=== PATIENT | female | born 1955 | race Caucasian/White ===

== ENCOUNTER → 2020-03-15 | Outpatient (CLI) | payer SELFPAY ==
[2020-03-15 18:10] LABS: BASOPHILS # (AUTO) 0.1 10^3/uL (0.0-0.1); BASOPHILS % (AUTO) 1.1 %; EOSINOPHILS # (AUTO) 0.1 10^3/uL (0.0-0.7); EOSINOPHILS % (AUTO) 0.6 %; HGB - HEMOGLOBIN 12.2 g/dL (12.0-16.0); LYMPHOCYTES # (AUTO) 3.3 10^3/uL (1.5-3.5); LYMPHOCYTES % (AUTO) 39.6 %; MEAN CORPUSCULAR HEMOGLOBIN 32.6 pg (27.0-31.0); MEAN CORPUSCULAR HGB CONC 32.3 g/dL (32.0-36.0); MEAN CORPUSCULAR VOLUME 101.1 fL (81.0-99.0); MEAN PLATELET VOLUME 10.2 fL (7.9-10.8); MONOCYTES # (AUTO) 1.2 10^3/uL (0.0-1.0); MONOCYTES % (AUTO) 14.6 %; NEUTROPHILS # (AUTO) 3.6 10^3/uL (1.5-6.6); NEUTROPHILS % (AUTO) 42.8 %; PLT - PLATELET COUNT 316 10^3/uL (130-450); RED BLOOD COUNT 3.74 10^6/uL (4.20-5.40); RED CELL DISTRIBUTION WIDTH 12.8 % (12.0-15.0); WHITE BLOOD COUNT 8.3 x10^3/uL (4.8-10.8)
[2020-03-15 18:51] LABS: ALBUMIN 4.1 g/dL (3.2-5.5); ALBUMIN/GLOBULIN RATIO 1.2 (1.0-2.2); ALKALINE PHOSPHATASE 35 IU/L (42-121); ALT ALANINE AMINOTRANSFERASE 20 IU/L (10-60); AST ASPARTATE AMINOTRANSFERASE 28 IU/L (10-42); BILIRUBIN,TOTAL 0.6 mg/dL (0.2-1.0); BUN - BLOOD UREA NITROGEN 16 mg/dL (6-20); CALCIUM 9.8 mg/dL (8.5-10.3); CARBON DIOXIDE - CO2 26 mmol/L (21-32); CHLORIDE 100 mmol/L (101-111); CHOL/HDL RATIO 3.2 (<4.4); CHOLESTEROL 161 mg/dL; CREATININE 0.5 mg/dL (0.4-1.0); GLUCOSE 82 mg/dL (70-100); HDL CHOLESTEROL 50 mg/dL; LDL CHOLESTEROL,CALCULATED 95 mg/dL; LDL/HDL RATIO 1.9 (<4.4); SODIUM 136 mmol/L (135-145); TOTAL PROTEIN 7.4 g/dL (6.7-8.2); VLDL CHOLESTEROL 16 mg/dL
== END ==
LOC: LAB.WCP 08:00
PROVIDERS: ATTEND Nurse Practitioner Family
DX: F32.9 Major depressive disorder, single episode, unspecified (principal); Z79.899 Other long term (current) drug therapy; R56.1 Post traumatic seizures
CPT/HCPCS: 36415; 80053; 80061; 83721; 84443; 85025

== ENCOUNTER 2020-11-25 14:39 | Outpatient (CLI) | payer MEDICARE, MEDICAID ==
[2020-11-25 15:21] VITALS: BP 91/59
--- NOTE | 2020-11-25 15:21 | SLEEP CARE CONSULTATION ---
Information from patient questionnaire entered by Maki Schmid. I have reviewed and concur with the information entered by Maki Schmid. This document represents the service I personally performed and the decisions made by me, Joslyn King ARNP. History of Present Illness Service Date and Time: 11/25/2020 1439 Reason for Visit: New patient Chief Complaint: reports: Insomnia, Unrefreshed sleep, Snoring, Excessive daytime sleepiness, Observed pauses in breathing, Frequent awakenings at night Date of Onset: many years Usual bedtime: 9 pm Time it takes to fall asleep: 1 hour or more Snores at night: Yes Observed to quit breathing while asleep: Yes Number of times waking at night: 3 Reasons for waking at night: reports: Snoring, Gasping for air, Bathroom. denies: Choking Toss, Turn, or Twitch while sleeping: Yes Recalls having dreams: Yes Usually gets out of bed at: 8 am Feels refreshed in the morning: No Morning headache: Yes (resolves in an hour; 4 days a week) Sleepy or fatigued during the day: Yes Ever fallen asleep while driving: No (she does not drive) Takes day naps: Yes (at least once a day for about an hour) Dreams during day naps: Yes Prior sleep studies: No Additional HPI information: I had the pleasure of seeing BAL HINSON today regarding the possibility of her having a sleep disorder. She is accompanied by her son and granddaughter today. She has a history of epilepsy. Her current complaints are frequent night awakenings, insomnia, observed pauses in breathing, unrefreshed sleep and snoring. She has been heard gasping in her sleep. Her son's girlfriend has been noting these since she sleeps in the same room that the girlfriend works in on the computer. She does see a neurologist for her epilepsy and they are adjusting her medications. She feels like she wakes up a lot at night and it takes her about an hour to fall asleep. She will also take daily 1 hour naps on average. Sometimes she will take a second nap during the day. She is on oxygen concentrator at night. 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 Patient is / and lives in [place]. Have you smoked in the past 12 months: No (vapes) Quit date: 2018 Alcohol use: No Caffeine use: Yes Caffeine amount and frequency: 2 cups coffee daily Family History Family history of sleep disordered breathing: No Allergies and Home Medications Drug allergies reviewed: Yes (NKDA) Allergy and home medication list: Depakote Clonazepam Citalopram Keppra Review of Systems Weight loss over past 5 years: 10 Cardiovascular: denies: high blood pressure Respiratory: reports: shortness of breath, wheeze Gastrointestinal: denies: heartburn Neurological: reports: seizure, head trauma, disorientation Psychiatric: reports: anxiety, claustrophobia. denies: depression, mood disorder Endocrine: reports: sluggishness, unexplained weakness Physical Exam Blood Pressure: 91/59 Cuff size: wrist Heart Rate: 96 O2 Saturation: 99 Height: 5 ft 2 in Weight: 101 lb Body Mass Index: 18.4 BMI Classification: Underweight Neck circumference: 12 (inches) Nostrils: patent to airflow Mouth and throat: narrow oropharynx Soft palate: long Hard palate: normal Uvula visualization: 50% Mallampati Class II Tongue: normal in size Tonsils: small Heart: regular rate and rhythm Lungs: clear bilaterally Impression and Plan 1. Suspected Obstructive Sleep Apnea-Hypopnea Syndrome, as suggested by a history of loud and irregular snoring, observed cessation of breath while asleep, gasping or choking in sleep, morning headache, frequent awakening during the night, unrefreshed sleep, cognitive impairment, and excessive daytime sleepiness. Narrow oropharynx and obesity are common predisposing factors for obstructive sleep apnea-hypopnea syndrome. I recommend proceeding to polysomnography to confirm the diagnosis and to assess severity. If the patient has significant sleep disordered breathing, a manual CPAP titration study will also be performed to find the optimal treatment pressure. I informed the patient of what the sleep studies involve and after some discussion, obtained agreement to proceed. The pathophysiology of obstructive sleep apnea-hypopnea syndrome was discussed with the patient and health risks of cardiovascular and cerebrovascular disease if not treated. Patient agreed to plan. * Schedule polysomnography +- manual CPAP titration study and return in 1-2 weeks after the study to discuss result and initiate therapy. * Avoid alcohol, sedative and muscle relaxant around bedtime. * Maintain a healthy weight. * Review instructions provided by trained office staff on how to prepare for the sleep study. * Return for follow-up after sleep study completed. Counseling Topics: Weight control Visit Type: In Office Time Spent with Patient (minutes): 31 Provider Statement: I spent 100% of the Face to Face Visit with the patient with greater than 50% spent counseling the patient and coordination of care.
== END 2020-11-25 14:40 | disposition home or self-care (01) ==
LOC: SC 14:39
PROVIDERS: ATTEND Nurse Practitioner Family
DX: G47.10 Hypersomnia, unspecified (principal); R06.81 Apnea, not elsewhere classified; G47.8 Other sleep disorders; R51.9 Headache, unspecified; R41.9 Unspecified symptoms and signs involving cognitive functions and awareness; R06.83 Snoring; R63.6 Underweight; Z68.1 Body mass index [BMI] 19.9 or less, adult
CPT/HCPCS: 99203; G0463; 99212

== ENCOUNTER 2020-11-29 12:30 | Outpatient (CLI) | payer MEDICARE, MEDICAID | END 2020-11-29 12:31 | disposition home or self-care (01) | LOC: SC 12:30 | PROVIDERS: ATTEND Nurse Practitioner Family | DX: G47.10 Hypersomnia, unspecified (principal); G47.8 Other sleep disorders; G47.00 Insomnia, unspecified; R51.9 Headache, unspecified; R06.81 Apnea, not elsewhere classified; R06.83 Snoring; R09.02 Hypoxemia | CPT/HCPCS: G0399 ×2; 95806 ==

== ENCOUNTER 2020-12-16 08:41 | Outpatient (CLI) | payer MEDICARE, MEDICAID ==
--- NOTE | 2020-12-16 09:01 | SLEEP CARE CONSULTATION ---
Information from patient questionnaire entered by Maki Schmid. I have reviewed and concur with the information entered by Maki Schmid. This document represents the service I personally performed and the decisions made by , Joslyn King ARNP. History of Present Illness Service Date and Time: 12/16/2020 0841 Initial [place] Sleepiness Scale score: 5 (in 2020) Current [place] Sleepiness Scale score: 9 Additional HPI information: BAL HINSON returns with sonfor follow up and results of the recently performed home sleep study. The patient was informed of the following findings: Patient patient HST was inconclusive due to poor air flow and pulse ox signals. The average AHI was 0.4 and leatha oxygen saturation 84%. It was recommended that patient do an in lab PSG study. Patient does not drink alcohol. Sleep Study - Results Type of Sleep Study: Home sleep study Prior sleep studies: No Polysomnography/Home Sleep Study results: Physician Impression: The quality of the study is poor due to significant loss of airflow and pulse oximetry signals.. The length of the study is adequate (> 240 minutes). Please also see the tabulated and graphic data. 1. No significant sleep disordered breathing, with an AHI of 0.4/hr and leatha SaO2 of 84%. During the study, the patient had 1 apnea (1 obstructive, 0 central, 0 mixed) and 0 hypopneas. The episode lasted 10.0 seconds. The respiratory events occurred more frequently during supine sleep (supine AHI was 0.0 and non-supine, 0.94). 2. Hypoxemia (ICD-10 R09.02), mild, with the lowest oxygen saturation of 84 % and 7.2 minutes with SaO2 under 90%. Baseline oxygen saturation was normal (Average oxygen saturation was 92%). Recommendation: Due to significant data loss, this home sleep apnea test (HSAT) is inconclusive. An in-laboratory polysomnography should be considered. Allergies and Home Medications Home medication list reviewed: Yes (no changes) Review of Systems Review of systems same as previous: Yes (no changes) Physical Exam Heart Rate: 112 O2 Saturation: 89 (uses nocturnal oxygen) Height: 5 ft 2 in Weight: 95 lb 9.6 oz Body Mass Index: 17.4 BMI Classification: Underweight Impression and Plan 1. Suspected Obstructive Sleep Apnea-Hypopnea Syndrome, as suggested by a history of irregular snoring, observed cessation of breath while asleep, gasping or choking in sleep, frequent awakening during the night, unrefreshed sleep, and excessive daytime sleepiness. Patient's a HST was inconclusive due to significant airflow pulse oximeter signal loss. I recommend proceeding to in lab polysomnography to confirm the diagnosis and to assess severity. I obtained agreement to proceed. The pathophysiology of obstructive sleep apnea-hypopnea syndrome was discussed with the patient and health risks of cardiovascular and cerebrovascular disease if not treated. Risks of drowsy driving discussed in detail and patient advised to avoid long distance driving and to gum puller at the first sign of drowsiness. Patient agreed to plan. * Schedule polysomnography +- manual CPAP titration study and return in 1-2 weeks after the study to discuss result and initiate therapy. * Avoid long distance driving or driving when feeling sleepy. * Avoid alcohol, sedative and muscle relaxant around bedtime. * Maintain a healthy weight. * Review instructions provided by trained office staff on how to prepare for the sleep study. * Return for follow-up after sleep study completed. Counseling Topics: Weight control Visit Type: In Office Other Participants: Child (Son) Time Spent with Patient (minutes): 12 Provider Statement: I spent 100% of the Face to Face Visit with the patient with greater than 50% spent counseling the patient and coordination of care.
== END 2020-12-16 08:42 | disposition home or self-care (01) ==
LOC: SC 08:41
PROVIDERS: ATTEND Nurse Practitioner Family
DX: G47.10 Hypersomnia, unspecified (principal); R06.81 Apnea, not elsewhere classified; G47.8 Other sleep disorders; R06.83 Snoring; R63.6 Underweight; Z68.1 Body mass index [BMI] 19.9 or less, adult
CPT/HCPCS: 99212; G0463

== ENCOUNTER 2021-04-27 19:58 | Outpatient (CLI) | payer MEDICARE, MEDICAID | END 2021-04-27 19:59 | disposition home or self-care (01) | LOC: SC 19:58 | PROVIDERS: ATTEND Nurse Practitioner Family | DX: G47.10 Hypersomnia, unspecified (principal); G47.8 Other sleep disorders; R06.81 Apnea, not elsewhere classified; R06.83 Snoring | CPT/HCPCS: 95810 ==

== ENCOUNTER 2021-05-11 13:27 | Emergency (ER) | payer MEDICARE, MEDICAID ==
[2021-05-11] MEDS ORDERED: SODIUM CHLORIDE 0.9% 1,000 ML IV STA (14:20)
[2021-05-11 14:30] LABS: BASOPHILS % (AUTO) 0.6 %; EOSINOPHILS % (AUTO) 0.5 %; HCT - HEMATOCRIT 35.2 % (37.0-47.0); HGB - HEMOGLOBIN 11.6 g/dL (12.0-16.0); LYMPHOCYTES % (AUTO) 23.4 %; MEAN CORPUSCULAR HEMOGLOBIN 32.7 pg (27.0-31.0); MEAN CORPUSCULAR VOLUME 99.2 fL (81.0-99.0); MEAN PLATELET VOLUME 10.3 fL (7.9-10.8); MONOCYTES % (AUTO) 12.7 %; NEUTROPHILS % (AUTO) 62.2 %; PLT - PLATELET COUNT 188 10^3/uL (130-450); RED BLOOD COUNT 3.55 10^6/uL (4.20-5.40); RED CELL DISTRIBUTION WIDTH 13.2 % (12.0-15.0)
[2021-05-11 14:33] LABS: ABNORMAL LYMPHS % (MANUAL) 0 %
[2021-05-11 14:42] LABS: ALBUMIN/GLOBULIN RATIO 1.4 (1.0-2.2); BILIRUBIN,TOTAL 1.4 mg/dL (0.2-1.0); CALCIUM 9.7 mg/dL (8.5-10.3); CREATININE 0.5 mg/dL (0.4-1.0); POTASSIUM 4.2 mmol/L (3.5-5.0); TOTAL PROTEIN 6.9 g/dL (6.7-8.2)
--- NOTE | 2021-05-11 14:50 | CT Report ---
PROCEDURE: HEAD WO INDICATIONS: multiple seizures TECHNIQUE: Noncontrast 4.5 mm thick angled axial sections acquired from the foramen magnum to the vertex. For r adiation dose reduction, the following was used: automated exposure control, adjustment of mA and/or kV according to patient size. COMPARISON: None. FINDINGS: Image quality: Excellent. CSF spaces: Basal cisterns are patent. No extra-axial fluid collections. Ventricles are normal in size and shape. Brain: No midline shift. No intracranial masses or hemorrhage. Galvan-white matter interface is norm al. Skull and face: Calvarium and visualized facial bones are intact, without suspicious lesions. Sinuses: Visualized sinuses and mastoids are clear. IMPRESSION: No acute intracranial abnormality. Patient will likely benefit from follow-up brain MRI. Reviewed by: Shoaib Arreguin MD on 05/11/2021 2:49 PM PST Approved by: Shoaib Arreguin MD on 05/11/2021 2:49 PM [facility] Station ID: [id number]
[2021-05-11] MEDS ORDERED: LORazepam 2 MG/ML VIAL IVP STA (14:52)
[2021-05-11] MEDS ORDERED: LORazepam 1 MG TABLET PO STA (14:52)
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
[2021-05-11 15:36] LABS: BAND NEUTROPHILS % (MANUAL) 1 %; LYMPHOCYTES # (MANUAL) 2.4 10^3/uL (1.5-3.5); LYMPHOCYTES % (MANUAL) 17 %; MONOCYTES # (MANUAL) 1.8 10^3/uL (0.0-1.0); NEUTROPHILS # (MANUAL) 9.8 10^3/uL (1.5-6.6)
[2021-05-11 15:37] LABS: DIFFERENTIAL COMMENT MANUAL DIFFERENTIAL; PLATELET ESTIMATE, MANUAL NORMAL (130-450,000) (NORMAL); PLATELET MORPHOLOGY NORMAL APPEARANCE (NORMAL); RBC MORPHOLOGY (MULTIPLE) NORMAL APPEARANCE (NORMAL)
[2021-05-11 16:34] VITALS: BP 103/70
== END 2021-05-11 16:34 | disposition home or self-care (01) ==
LOC: ED 13:27
DX: F44.5 Conversion disorder with seizures or convulsions (principal)
CPT/HCPCS: 36415; 70450; 80053; 83690; 85025; 96374; 99284; J2060; J8499

== ENCOUNTER 2021-05-15 13:18 | Outpatient (CLI) | payer MEDICARE, MEDICAID ==
[2021-05-16 08:34] VITALS: BP 110/68
--- NOTE | 2021-05-16 08:34 | SLEEP CARE CONSULTATION ---
Information from patient questionnaire entered by Cami Sanchez MA. I have reviewed and concur with the information entered by Cami Sanchez MA. This document represents the service I personally performed and the decisions made by me, Michel Louise MD, [facility]. History of Present Illness Service Date and Time: 05/15/2021 1318 Initial [place] Sleepiness Scale score: 5 (in 2020) Current [place] Sleepiness Scale score: 10 (2020) Additional HPI information: Ms. Coleman returned for follow up of the in-laboratory polysomnography she had on 04/27/2021. The polysomnography showed that the in-laboratory polysomnography was performed with 2.5 L/minute of oxygen supplementthe same flow rate the patient is on at home. The quality of the study is good. The patient had normal sleep efficiency. The sleep architecture was relatively normal as well considering the first night effect. Respiratory monitoring showed no significant sleep disordered breathing sleep-disordered breathing (AHI = 1.0) or hypoxia (leatha oxygen saturation of 90%). The patient slept mostly supine (supine AHI = 1.3; non-supine = 0.00). Snore was light in intensity. There was no significant periodic leg movement of sleep. Cardiac rhythm was normal sinus rhythm without significant arrhythmia. No abnormal behavior (parasomnia) observed during the night. The patient was informed of these findings. I explained to her that the sleep study was normal with the oxygen therapy. Sleep Study - Results Type of Sleep Study: Polysomnography Prior sleep studies: Yes Year and Where: 2020 [facility] Allergies and Home Medications Drug allergies reviewed: Yes Home medication list reviewed: Yes Review of Systems Review of systems same as previous: Yes Physical Exam Vital signs obtained and entered by: BENI CHARLES Blood Pressure: 110/68 (right ) Cuff size: wrist Heart Rate: 98 Height: 5 ft 3 in Weight: 99 lb (with clothes) Body Mass Index: 17.5 BMI Classification: Underweight Impression and Plan IMPRESSION: 1. Hypoxia, adequately controlled with oxygen flow rate of 2.5 L/minute. No sleep-disordered breathing. PLAN: 1. Continue with home oxygen therapy at night at 2.5 L/minute. 2. Follow up with her primary care provider and sole inker. 3. Return for a follow up on as needed basis. Follow up with Sleep Care in: as needed Visit Type: In Office Time Spent with Patient (minutes): 15 Provider Statement: I spent 100% of the Face to Face Visit with the patient with greater than 50% spent counseling the patient and coordination of care.
== END 2021-05-15 13:19 | disposition home or self-care (01) ==
LOC: SC 13:18
PROVIDERS: ATTEND Internal Medicine Pulmonary Disease
DX: R09.02 Hypoxemia (principal)
CPT/HCPCS: 99212; G0463

== ENCOUNTER 2023-05-21 11:36 | Outpatient (CLI) | payer MEDICARE, MEDICAID ==
--- NOTE | 2023-05-21 19:32 | XRAY Report ---
PROCEDURE: Foot 3 View LT INDICATIONS: LEFT FOOT UNSPECIFIED FRACTURE TECHNIQUE: 3 views of the foot were acquired. COMPARISON: None. FINDINGS: Bones: Acute, minimally displaced, extra articular fractures at the base of the second and third met atarsals. No suspicious bony lesions. Soft tissues: No suspicious soft tissue calcifications or masses. IMPRESSION: Acute, minimally displaced, extra articular fractures at the base of the second and third metatarsals . Cannot exclude a Lisfranc injury on nonweightbearing view. Reviewed by: Jannet Weathers MD on 05/21/2023 7:31 PM PST Approved by: Jannet Weathers MD on 05/21/2023 7:31 PM PST Station ID: [id number]
== END 2023-05-21 11:37 | disposition home or self-care (01) ==
LOC: DI.N 11:36
PROVIDERS: ATTEND Physician Assistant Medical
DX: S92.322A Displaced fracture of second metatarsal bone, left foot, initial encounter for closed fracture (principal); S92.332A Displaced fracture of third metatarsal bone, left foot, initial encounter for closed fracture

== ENCOUNTER 2024-01-25 09:35 | Emergency (ER) | payer MEDICARE ==
[2024-01-25 09:55] VITALS: O2SAT 99
--- NOTE | 2024-01-25 10:07 | ED Physician Documentation ---
PD HPI UPPER EXT INJURY - Stated complaint Stated Complaint: LT WRIST INJURY - Chief complaint Chief Complaint: Trauma Ext - History obtained from History obtained from: Patient - History of Present Illness Location: Left, Wrist Type of injury: Fall (states lost balance and fell onto left wrist outstretched.) Timing - onset: Today Timing - duration: Hours (1-2 hours ago) Timing - details: Abrupt onset, Still present Worsened by: Moving Associated symptoms: Swelling. No: Weakness, Numbness Contributing factors: No: Anticoagulated Similar symptoms before: Has not had sx before Review of Systems Skin: denies: Abrasion (s), Laceration (s) Neurologic: denies: Altered mental status, Head injury, LOC PD PAST MEDICAL HISTORY - Past Medical History Past Medical History: Yes Neuro: Seizure disorder - Past Surgical History Past Surgical History: No - Present Medications Home Medications: Ambulatory Orders Medication Instructions Recorded Confirmed Divalproex Sodium [Depakote ER] 500 mg PO BID 05/11/21 05/11/21 clonazePAM [Clonazepam] 1 mg PO BID 05/11/21 05/11/21 diazePAM [Valium] 5 mg PO TID PRN #15 tablet 05/11/21 levETIRAcetam [Keppra] 250 mg PO BID 05/11/21 05/11/21 HYDROcod/ACETAM 5/325 [[place] 5/325] 1 ea PO Q6H PRN #20 tablet 01/25/24 Meloxicam [Mobic] 7.5 mg PO BID 10 Days #20 tablet 01/25/24 - Allergies Allergies/Adverse Reactions: Allergies Allergy/AdvReac Type Severity Reaction Status Date / Time No Known Drug Allergies Allergy Verified 01/25/24 09:51 - Social History Does the pt smoke?: Yes Smoking Status: Current every day smoker PD ED PE NORMAL - Vitals Vital signs reviewed: Yes - General General: Alert and oriented X 3, Well developed/nourished, Other (in obvious pain due to wrist injury. ) - HEENT HEENT: Atraumatic - Neck Neck: Supple, no meningeal sign, No bony TTP - Derm Derm: Normal color, Warm and dry - Extremities Extremities: Other (left wrist with pain and tenderness, with swelling and mild dorsal deformity at distal radius. Not tender in snuffbox per se. good color and cap refill in fingers. ) - Neuro Neuro: No motor deficit, No sensory deficit Results - Vitals Vitals: Vital Signs - 24 hr 01/25/24 01/25/24 09:51 11:46 Temperature 36.5 C 36.4 C L Heart Rate 89 87 Respiratory 16 16 Rate Blood Pressure 112/70 109/55 L O2 Saturation 99 99 Oxygen O2 Source Room air - Rads (name of study) left wrist Relevant Findings:: Prelim report reviewed, EMP independent interpretation of test (distal radius fracture impacted with about 10-15 degrees dorsal angulation but nondisplaced. ) Procedures - Splint (location) - Minor left wrist Splint applied by: Tech Type of splint: Fiberglass, Sugar tong Other: Patient tolerated well, No complications, Neurovascular intact, Sling provided PD Medical Decision Making - ED course Complexity details: reviewed results (xray coonfirms impaction fracture. I beleive it is in acceptable range of angulation for just splinting at this time with ortho f/u in about a week. ), considered differential (no head injury description nor symptoms. Not on blood thinners. Seems localized injury to wrist with clinically obvious fracture.), d/w patient Departure - Departure Disposition: Home, Self Care Clinical Impression: Fall, accidental, Colles' fracture of left radius Condition: Stable Record reviewed to determine appropriate education?: Yes Instructions: ED Fx Colles Wrist No Redu Requ Follow-Up: [facility] [Provider Group] Prescriptions: Meloxicam [Mobic] 7.5 mg PO BID 10 Days #20 tablet HYDROcod/ACETAM 5/325 [[place] 5/325] 1 ea PO Q6H PRN #20 tablet PRN Reason: Pain Comments: You do have a fracture of your wrist. It is slightly angulated but I believe within the range that is acceptable. If it does need to be straight and slightly, the orthopedist can do that at the time of changing from splint to cast when it is hurting less. We applied a splint to your wrist. This allows for expansion as there is likely to be swelling that develops. Keep it elevated iced and rested. Use the sling to help support your arm. Follow-up with orthopedics in a about a week, call Saturday for an appointment. Regular anti-inflammatories would be useful for swelling and pain. To that add acetaminophen/Tylenol 500 to 650 mg every 4 times a day a regularly for the next week or so. To that add hydrocodone/acetaminophen every 6-8 hours if needed for worse pain. This is likely to be needed just the first several days or so with the initial "angriness" of the nerve endings and swelling etc. I sent your prescriptions to your preferred pharmacy. Continue your other usual medicines. I am prescribing a short course of narcotic pain medication for you. These are potentially dangerous and addictive medications that should be used carefully. These medications may constipate you. Take an kjcl-otz-wausoxs stool softener such as docusate twice daily with plenty of water while taking these medications. If you go 24 hours without a bowel movement, take mzcy-eed-klicdyk MiraLAX, per package instructions. Do not drink or drive while taking these medications. If you received narcotic or sedating medications while in the emergency department do not drive for 24 hours. Store this medication in a safe, secure place and out of reach of children. It is a violation of federal law to give or sell this medication to another person or to use in a manner other than prescribed. The ED will not refill narcotic prescriptions, including prescriptions lost or stolen. You can dispose of unwanted medications at the [facility] office or at several pharmacies such as [facility]. Forms: PCP List Discharge Date/Time: 01/25/24 11:46
[2024-01-25] MEDS: HYDROmorphone 1 MG/ML CARPUJECT IM STA (10:53)
[2024-01-25] MEDS: KETOROLAC 30 MG/ML VIAL IM STA (10:54)
--- NOTE | 2024-01-25 11:20 | XRAY Report ---
PROCEDURE: Wrist 3+V LT INDICATIONS: Trauma TECHNIQUE: 3 views of the wrist were acquired. COMPARISON: None FINDINGS: Bones: Comminuted intra-articular distal radial fracture with dorsal angulation Soft tissues: No suspicious soft tissue calcifications or masses. IMPRESSION: Comminuted intra-articular distal radial fracture with dorsal angulation and impaction. Ulnar styloid fracture, nondisplaced Reviewed by: Raj Alvarado MD on 01/25/2024 10:15 AM CHIO Approved by: Raj Alvarado MD on 01/25/2024 10:15 AM AKDT Station ID: [id number]
[2024-01-25 11:53] VITALS: BP 109/55
== END 2024-01-25 11:46 | disposition home or self-care (01) ==
LOC: ED 09:35
DX: S52.532A Colles' fracture of left radius, initial encounter for closed fracture (principal); W18.39XA Other fall on same level, initial encounter; F17.200 Nicotine dependence, unspecified, uncomplicated
CPT/HCPCS: 29125; 73110; 96372; 99283; 99284; J1170

== ENCOUNTER 2024-01-29 14:46 | Outpatient (CLI) | payer MEDICARE ==
--- NOTE | 2024-01-30 18:19 | XRAY Report ---
Wrist 3+V LT HISTORY: 68 years of age, PAIN IN LEFT WRIST TECHNIQUE: Wrist 3+V LT COMPARISON: 01/25/2024. FINDINGS/IMPRESSION: Patient is imaged in a cast, limiting evaluation. Fracture of the distal radius, with increased impac tion in comparison to prior exam. There is moderate dorsal angulation of the distal fracture fragment . Ulnar positive variance, progressed from prior exam. Reviewed by: Sera Helton MD on 01/30/2024 6:18 PM PDT Approved by: Sera Helton MD on 01/30/2024 6:18 PM PDT Station ID: [id number]
== END 2024-01-29 14:47 | disposition home or self-care (01) ==
LOC: DI.N 14:46
PROVIDERS: ATTEND Orthopaedic Surgery
DX: S52.502A Unspecified fracture of the lower end of left radius, initial encounter for closed fracture (principal)

== ENCOUNTER 2024-01-30 17:22 | Outpatient (CLI) | payer MEDICARE ==
--- NOTE | 2024-01-31 13:14 | XRAY Report ---
PROCEDURE: Wrist 3+V LT INDICATIONS: PAIN IN LEFT WRIST TECHNIQUE: 3 views of the wrist were acquired. COMPARISON: X-ray wrist 01/29/2024 FINDINGS: Bones: Overlying cast material obscures fine detail evaluation. There is slightly improved alignment of distal radial fracture compared to prior exam. Soft tissues: No suspicious soft tissue calcifications or masses. IMPRESSION: Slightly improved alignment of distal radial fracture. Reviewed by: Ellie Hackett MD on 01/31/2024 1:12 PM PDT Approved by: Ellie Hackett MD on 01/31/2024 1:12 PM PDT Station ID: [id number]
== END 2024-01-30 17:23 | disposition home or self-care (01) ==
LOC: DI 17:22
PROVIDERS: ATTEND Orthopaedic Surgery
DX: S52.502A Unspecified fracture of the lower end of left radius, initial encounter for closed fracture (principal)

== ENCOUNTER 2024-02-11 19:24 | Outpatient (CLI) | payer MEDICARE | END 2024-02-11 23:59 | disposition critical access hospital (66) | LOC: EMS 19:24 | DX: R56.9 Unspecified convulsions (principal); F41.9 Anxiety disorder, unspecified | CPT/HCPCS: A0425; A0429 ==

== ENCOUNTER 2024-02-11 19:52 | Emergency (ER) | payer MEDICARE ==
--- NOTE | 2024-02-11 19:52 | ED Physician Documentation ---
History of Present Illness - Stated complaint Stated Complaint: SZ - History obtained from History obtained from: Patient, Family - Additonal information Additional information: ROSSANA. HPI is from EMS, patient, and the patient's son (who is in the ED at patient's bedside). Patient says she has diagnosis of a seizure disorder for which she takes multiple medications (the son brought in these medications and I reviewed the prescription bottles which confirm what he says she has been prescribed). These medications are Keppra 500 mg twice daily, clonazepam BIBA, divalproex 5 mg twice daily, and as needed diazepam up to 1 mg BIBA as needed for break-through seizure activity. Today son called 911 tonight due to patient exhibiting increasing newly frequent episodes of seizure-like activity over the past 3 days.EMS says that they witnessed 1 of these episodes en route to the emergency department and states that patient suddenly began flailing her arms and stating with clear speech "I'm having a seizure!" EMS says there was no LOC and no post-ictal phase; they relate that the flailing abruptly stopped and patient resumed normal conversation. Review of Systems Constitutional: denies: Fever, Chills, Myalgias, Fatigue, Sweats Cardiac: reports: Reviewed and negative Respiratory: reports: Reviewed and negative GI: reports: Reviewed and negative Musculoskeletal: reports: Reviewed and negative Neurologic: reports: Seizure. denies: Generalized weakness, Focal weakness, Numbness, Difficulty speaking, Near syncope, Syncope, Confused, Altered mental status, Unresponsive, Headache, Head injury, LOC PD PAST MEDICAL HISTORY - Present Medications Home Medications: Ambulatory Orders Medication Instructions Recorded Confirmed Divalproex Sodium [Depakote ER] 500 mg PO BID 05/11/21 05/11/21 clonazePAM [Clonazepam] 1 mg PO BID 05/11/21 05/11/21 diazePAM [Valium] 5 mg PO TID PRN #15 tablet 05/11/21 levETIRAcetam [Keppra] 250 mg PO BID 05/11/21 05/11/21 HYDROcod/ACETAM 5/325 [[place] 5/325] 1 ea PO Q6H PRN #20 tablet 01/25/24 Meloxicam [Mobic] 7.5 mg PO BID 10 Days #20 tablet 01/25/24 - Allergies Allergies/Adverse Reactions: Allergies Allergy/AdvReac Type Severity Reaction Status Date / Time No Known Drug Allergies Allergy Verified 02/11/24 19:58 PD ED PE NORMAL - Vitals Vital signs reviewed: Yes - General General: Alert and oriented X 3, No acute distress, Well developed/nourished - HEENT HEENT: Atraumatic, PERRL, EOMI - Neck Neck: Supple, no meningeal sign - Cardiac Cardiac: RRR, No murmur - Respiratory Respiratory: No respiratory distress, Clear bilaterally - Abdomen Abdomen: Soft, Non tender - Neuro Neuro: Alert and oriented X 3, 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, No motor deficit, No sensory deficit, Normal speech Eye Opening: Spontaneous Motor: Obeys Commands Verbal: Oriented GCS Score: 15 - Psych Psych: Normal mood, Normal affect Results - Vitals Vitals: Vital Signs - 24 hr 02/11/24 02/11/24 19:58 22:20 Temperature 36.6 C 36.6 C Heart Rate 100 90 Respiratory 16 18 Rate Blood Pressure 136/76 H 117/68 O2 Saturation 98 97 Oxygen O2 Source Room air - Labs Labs: Laboratory Tests 02/11/24 02/11/24 02/11/24 20:15 20:15 21:19 WBC 9.3 RBC 3.35 L Hgb 10.9 L Hct 33.1 L MCV 98.8 MCH 32.5 H MCHC 32.9 RDW 13.2 Plt Count 289 MPV 9.7 Neut # (Auto) 5.4 Lymph # (Auto) 2.5 [place] # (Auto) 1.3 H Eos # (Auto) 0.1 Baso # (Auto) 0.1 Absolute Nucleated RBC 0.00 Nucleated RBC % 0.0 Sodium 139 Potassium 4.2 Chloride 102 Carbon Dioxide 33 H Anion Gap 4.0 L BUN 16 Creatinine 0.6 Estimated GFR (MDRD) 99 Glucose 126 H Calcium 9.8 Total Bilirubin 0.3 AST 20 ALT 12 Alkaline Phosphatase 54 Total Protein 6.6 Albumin 3.9 Globulin 2.7 Albumin/Globulin Ratio 1.4 Lipase 40 Urine Color YELLOW Urine Clarity CLEAR Urine pH 7.0 Ur Specific [place] 1.020 Urine Protein NEGATIVE Urine Glucose (UA) NEGATIVE Urine Ketones NEGATIVE Urine Occult Blood NEGATIVE Urine Nitrite NEGATIVE Urine Bilirubin NEGATIVE Urine Urobilinogen 0.2 (NORMAL) Ur Leukocyte Esterase NEGATIVE Ur Microscopic Review NOT INDICATED Urine Culture Comments NOT INDICATED PD Medical Decision Making - ED course Complexity details: reviewed old records, reviewed results, re-evaluated patient, considered differential, d/w patient, d/w family ED course: No concerning or diagnostic findings on CBC, ER abdominal panel. H/H is mildly below normal range. She is given 1 mg IV lorazepam early in her stay and did not have any seizure-like activity for her entire ED stay. I discussed this case with Dr. Helton (on-call neurology for the patient's neurology group). Dr. Helton was able to review records from her and at [facility]/[place]. The upshot of this conversation is Dr. Helton recommends getting a urinalysis to check for infection, but that I make no changes in the patient's current medication regimen. I discussed this with the patient, results reviewed, and return precautions are discussed. I emphasized to the patient that the single most important next step in her care is for her to contact her neurologist in the morning when the office opens arrange for immediate follow-up/reevaluation. Departure - Departure Disposition: 01 Home, Self Care Clinical Impression: Seizure-like activity Condition: Good Instructions: ED Seizure Recurrent Comments: There were no concerning or diagnostic findings on tonight's blood test. Your red blood cell levels were slightly below the normal range, but not to an extent that would cause any symptoms nor is cause for immediate concern. However, you should mention this finding to your primary care provider when you next see them for comparative purposes. I discussed your case with Dr. Helton (on-calling neurologist for Dr. Jessica acevedo; they are in the same neurology group). Dr. Helton recommends that I do not adjust your current medication regimen. What is of greatest importance is that you contact your neurologist's office in the morning when they are next open to arrange for the next available appointment for follow-up/reevaluation. Forms: PCP List Discharge Date/Time: 02/11/24 22:21
[2024-02-11 20:20] LABS: BASOPHILS # (AUTO) 0.1 10^3/uL (0.0-0.1); EOSINOPHILS # (AUTO) 0.1 10^3/uL (0.0-0.7); EOSINOPHILS % (AUTO) 0.5 %; HCT - HEMATOCRIT 33.1 % (37.0-47.0); HGB - HEMOGLOBIN 10.9 g/dL (12.0-16.0); LYMPHOCYTES # (AUTO) 2.5 10^3/uL (1.5-3.5); LYMPHOCYTES % (AUTO) 26.5 %; MEAN CORPUSCULAR HEMOGLOBIN 32.5 pg (27.0-31.0); MEAN CORPUSCULAR HGB CONC 32.9 g/dL (32.0-36.0); MEAN CORPUSCULAR VOLUME 98.8 fL (81.0-99.0); MEAN PLATELET VOLUME 9.7 fL (7.9-10.8); MONOCYTES # (AUTO) 1.3 10^3/uL (0.0-1.0); MONOCYTES % (AUTO) 13.6 %; NEUTROPHILS # (AUTO) 5.4 10^3/uL (1.5-6.6); NEUTROPHILS % (AUTO) 57.9 %; PLT - PLATELET COUNT 289 10^3/uL (130-450); RED BLOOD COUNT 3.35 10^6/uL (4.20-5.40); RED CELL DISTRIBUTION WIDTH 13.2 % (12.0-15.0); WHITE BLOOD COUNT 9.3 x10^3/uL (4.8-10.8)
[2024-02-11] MEDS: LORazepam 2 MG/ML VIAL IVP STA (20:38)
[2024-02-11 20:39] LABS: ALBUMIN 3.9 g/dL (3.2-5.5); ALBUMIN/GLOBULIN RATIO 1.4 (1.0-2.2); BILIRUBIN,TOTAL 0.3 mg/dL (0.2-1.0); CALCIUM 9.8 mg/dL (8.5-10.3); CREATININE 0.6 mg/dL (0.6-1.3); POTASSIUM 4.2 mmol/L (3.5-4.5); TOTAL PROTEIN 6.6 g/dL (6.4-8.9)
[2024-02-11 21:29] LABS: BILIRUBIN,URINE NEGATIVE (NEGATIVE); GLUCOSE, URINE (UA) NEGATIVE (NEGATIVE); KETONES,URINE (UA) NEGATIVE (NEGATIVE); LEUKOCYTE ESTERASE, URINE NEGATIVE (NEGATIVE); NITRITE,URINE NEGATIVE (NEGATIVE); OCCULT BLOOD,URINE NEGATIVE (NEGATIVE); PROTEIN,URINE NEGATIVE (NEGATIVE); UROBILINOGEN,URINE 0.2 (NORMAL) E.U./dL (NORMAL)
[2024-02-11 21:34] LABS: CLARITY,URINE CLEAR (CLEAR)
[2024-02-11] MEDS: clonazePAM 0.5 MG TABLET PO STA (22:11)
[2024-02-11 22:30] VITALS: BP 117/68; O2SAT 97
== END 2024-02-11 22:21 | disposition home or self-care (01) ==
LOC: EDUNIT# → ED 19:52
DX: G40.909 Epilepsy, unspecified, not intractable, without status epilepticus (principal)
CPT/HCPCS: 36415; 80053; 81003; 83690; 85025; 99284; A9270; J2060; 81001; 87086